=== PATIENT | female | born 1950 | race Caucasian/White ===

== ENCOUNTER 2018-12-05 13:02 | Inpatient (IN) ==
[2018-12-05] MEDS ORDERED: ceFAZolin 2 GM in DEXTROSE 5% IN WATER 50 ML IV SCH (14:00)
--- NOTE | 2018-12-05 14:05 | Emergency Department Note ---
Lower Extremity Injury HPI <Pinky Warrenergen - Last Filed: 12/05/18 14:11> - General Source: patient, family Mode of arrival: wheelchair Limitations: no limitations - History of Present Illness MD complaint: hip injury (right) Onset (ago): day(s) (4) Type of Injury: blunt Place: home <Jahaira Ray - Last Filed: 12/05/18 14:43> - General Chief Complaint: Extremity Injury, Lower Stated Complaint: Right hip pain Time Seen by Provider: 12/05/18 13:07 - History of Present Illness HPI Narrative: 68-year-old female in ED referred from Dr. Cespedes's office. Patient advised 3 days ago she was at home and tripped while walking into the living room, her foot caught on the carpet transition board. She fell face first and bruised left side of her face, left knee. Patient was assisted up and continued on her day with increased pain. The next day she was unable to move her right leg and called EMS to take her into the hospital. She was in [facility] and admitted for overnight observation. Today patient was transferred to Dr. Cespedes's office who advised surgery was needed. Patient needs right total hip replacement and hardware removal of the gamma nail. Patient advises she did recently see her cable hooker 3 weeks ago and was advised she did not need to return for another year. (Jahaira Ray) - Related Data Home Medications Medication Instructions Recorded Confirmed Bisoprolol Fumarate 5 mg PO DAILY 12/05/18 12/05/18 Digoxin 0.125 mg PO DAILY 12/05/18 12/05/18 Famotidine [Pepcid] 20 mg PO DAILY 12/05/18 12/05/18 Folic Acid 1 mg PO BID 12/05/18 12/05/18 Levothyroxine [Synthroid] 100 mcg PO DAILY 12/05/18 12/05/18 Lisinopril [Zestril] 2.5 mg PO DAILY 12/05/18 12/05/18 Spironolactone [Aldactone] 25 mg PO DAILY 12/05/18 12/05/18 Allergies Allergy/AdvReac Type Severity Reaction Status Date / Time meperidine [From Demerol] Allergy Verified 12/05/18 13:03 Sulfa (Sulfonamide Allergy Verified 12/05/18 13:03 Antibiotics) Review of Systems All systems ED: reviewed and negative except as stated. <Jahaira Ray Last Filed: 12/05/18 14:43> Past Medical History - Past Medical History Medical history: Reports: CHF, hyperlipidemia, hypertension, hypothyroidism - Social History smoking status: Current every day smoker <Jahaira Ray Last Filed: 12/05/18 14:43> Physical Exam Limitations: no limitations General appearance: alert, in no apparent distress Head: atraumatic, normocephalic, normal inspection, other (bruising left side forehead and left cheek) Eye: Present: normal appearance, PERRL, EOMI. Absent: conjunctival injection ENT: normal oropharynx, mucous membranes moist, normal external ear exam Neck: Present: normal inspection. Absent: tenderness, lymphadenopathy Chest: Present: normal inspection, symmetric chest wall rise. Absent: tenderness Respiratory: Present: normal lung sounds bilaterally. Absent: respiratory distress, rales/crackles, wheezes Cardiovascular: Present: regular rate, normal rhythm. Absent: systolic murmur, diastolic murmur Abdominal: Present: soft, normal bowel sounds. Absent: distention, tenderness, guarding, rebound, rigidity Extremities: Present: tenderness (right hip). Absent: pedal edema Back: Present: normal inspection Neurological: Present: alert, oriented X3 Psychiatric: Present: normal affect, normal mood. Absent: depressed, agitated, anxious, flat affect Skin: Present: warm, dry, intact, normal color. Absent: cool, diaphoretic <Jahaira Ray Last Filed: 12/05/18 14:43> Vital Signs Temperature 96.8 F L 12/05/18 13:03 Pulse Rate 58 L 12/05/18 13:03 Respiratory Rate 16 12/05/18 13:03 Blood Pressure 98/61 12/05/18 13:03 Pulse Oximetry (%) 98 12/05/18 13:03 Temperature 96.8 F L 12/05/18 13:03 Pulse Rate 62 12/05/18 13:46 Respiratory Rate 16 12/05/18 13:03 Blood Pressure 112/58 12/05/18 13:46 Pulse Oximetry (%) 100 12/05/18 13:46 Extremity Injury, Lower - Lab Data Result diagrams: 12/05/18 13:17 12/05/18 13:17 <Sylvain Warren - Last Filed: 12/05/18 14:11> - Lab Data Result diagrams: 12/05/18 13:17 12/05/18 13:17 <Jahaira Ray - Last Filed: 12/05/18 14:43> - MDM Narrative Medical decision making narrative: Patient was transferred to surgery. (Jahaira Ray) - Lab Data Lab Results 12/05/18 Range/Units 13:35 Urine Color Yellow Urine Appearance Cloudy Urine pH 7.0 (5.0-9.0) Ur Specific [place] 1.010 (1.000-1.035) Urine Protein Neg (NEG) mg/dL Urine Glucose (UA) Negative (NEG) mg/dL Urine Ketones Neg (NEG) mg/dL Urine Occult Blood Neg (<0.03) mg/dL Urine Nitrate Neg (NEG) Urine Bilirubin Neg (NEG) mg/dL Urine Urobilinogen Neg (NEG) mg/dL Ur Leukocyte Esterase Neg (NEG) /uL Ur Culture Indicated? No Disposition <Sylvain Warren - Last Filed: 12/05/18 14:11> Pt seen by ASSOCIATE PROFESSOR OF SURGERY/PA only: No (Kelvin) Time of Disposition: 14:43 <Jahaira Ray - Last Filed: 12/05/18 14:43> Clinical Impression: Hip arthritis Disposition: Xfer As Outpt/Obs ([facility]) Condition: Good
--- NOTE | 2018-12-05 14:05 | XRay Report ---
INDICATION: Dyspnea TECHNIQUE: AP chest x-ray,portable semiupright COMPARISON: None FINDINGS:Changes consistent with previous mastectomy. There are surgical clips in the right axilla Lungs are negative. No parenchymal infiltrate. No focal pulmonary parenchymal mass. Heart size and vascularity are normal. Phyllis and mediastinum are negative. There is no pleural fluid. No acute abnormality IMPRESSION: 1. Previous right mastectomy 2. No acute or focal abnormality Interpreted and Authenticated by: Joey Klein 12/05/18
--- NOTE | 2018-12-05 14:11 | Emergency Department Note ---
ED Note Addendum Note Addendum: Patient seen by nurse practitioner Jahaira. Agree with the assessment and treatment plan.
[2018-12-05] MEDS ORDERED: GENTAMICIN SULFATE 800 MG/20 ML VIAL IR ONE (14:12)
[2018-12-05 14:22] LABS: Appearance,Urine CLOUDY; Bilirubin,Urine NEG (NEG); Color,Urine YELLOW; Glucose,Urine (UA) NEGATIVE (NEG); Leukocyte Esterase,Urine NEG /uL (NEG); Protein,Urine NEG (NEG); Urine Blood NEG mg/dL (<0.03); Urobilinogen,Urine NEG (NEG)
[2018-12-05] MEDS ORDERED: 0.9 % SODIUM CHLORIDE 9 ML, KETOROLAC 30 MG, ROPIVACAINE HCL/PF 49.5 ML, EPINEPHrine 0.... IJ ONE (15:04)
[2018-12-05 15:19] LABS: Basophils # (Auto) 0.1 K/mcL (0.0-0.3); Basophils % (Auto) 0.8 % (0.0-2.0); Eosinophils # (Auto) 0.2 K/mcL (0.0-0.7); Eosinophils % (Auto) 1.6 % (0.0-7.0); Granulocytes % (Auto) 77.9 % (38.0-78.0); Lymphocytes # (Auto) 1.2 K/mcL (1.5-4.8); Mean Cell Volume 110.7 fL (80.0-100.0); Mean Corpuscular HGB Conc 32.9 g/dL (31.0-36.0); Monocytes # (Auto) 1.2 K/mcL (0.1-0.9); Monocytes % (Auto) 9.7 % (1.0-12.0); Platelet Count 331 K/mcL (140-440); RBC 3.52 M/mcL (4.00-5.20); Red Cell Distribution Width 13.4 % (11.5-14.5)
[2018-12-05] MEDS ORDERED: MIDAZOLAM 2 MG/2 ML VIAL IV ONE (15:30)
[2018-12-05] MEDS ORDERED: KETAMINE 100 MG/ML ML IV ONE (15:30)
[2018-12-05] MEDS ORDERED: ONDANSETRON 4 MG/2 ML VIAL IV ONE (15:30)
[2018-12-05] MEDS ORDERED: PHENYLEPHRINE 10 MG/ML VIAL IV ONE (15:30)
[2018-12-05] MEDS ORDERED: PROPOFOL 200 MG/20 ML VIAL IV ONE (15:30)
[2018-12-05] MEDS ORDERED: GLYCOPYRROLATE 0.2 MG/ML VIAL IV ONE (15:30)
[2018-12-05] MEDS ORDERED: TRANEXAMIC ACID 1,000 MG/10 ML VIAL IV ONE ×3 (15:30→17:42)
[2018-12-05] MEDS ORDERED: fentaNYL 100 MCG/2 ML VIAL IV ONE (15:30)
[2018-12-05] MEDS ORDERED: ePHEDrine 50 MG/ML AMPUL IV ONE (15:30)
[2018-12-05] MEDS ORDERED: LIDOCAINE HCL/PF 100 MG/5 ML SYRINGE IV ONE (15:30)
[2018-12-05] MEDS ORDERED: DEXAMETHASONE 4 MG/ML VIAL IV ONE (15:30)
[2018-12-05 15:40] LABS: ALT/SGPT 18 U/l (0-40); Albumin 3.3 gm/dL (3.2-5.2); Alkaline Phosphatase 158 U/L (39-117); Blood Urea Nitrogen 8 mg/dl (8-23)
[2018-12-05] MEDS ORDERED: BENZOCAINE/MENTHOL 1 LOZENGE PO PRN ×2 (16:46→17:12)
[2018-12-05] MEDS ORDERED: NALOXONE HCL 0.4 MG/ML VIAL IV PRN (16:46)
[2018-12-05] MEDS ORDERED: fentaNYL 100 MCG/2 ML VIAL IV PRN (16:46)
[2018-12-05] MEDS ORDERED: LACTATED RINGERS 250 ML IV PRN (16:46)
[2018-12-05] MEDS ORDERED: ONDANSETRON 4 MG/2 ML VIAL IV PRN (16:46)
[2018-12-05] MEDS ORDERED: ACETAMINOPHEN 700 MG/70 ML BOTTLE IV ONE (16:46)
[2018-12-05] MEDS ORDERED: FLUMAZENIL 0.1 MG/ML ML IV PRN (16:46)
[2018-12-05] MEDS ORDERED: diphenhydrAMINE 50 MG/ML VIAL IV PRN (16:46)
[2018-12-05] MEDS ORDERED: IPRATROPIUM/ALBUTEROL 3 ML AMPUL.NEB NEB PRN (16:46)
[2018-12-05] MEDS ORDERED: PROMETHAZINE 25 MG/ML VIAL IV PRN (16:46)
[2018-12-05] MEDS ORDERED: LACTATED RINGERS 1,000 ML IV SCH (17:00)
--- NOTE | 2018-12-05 17:11 | Brief Operative Note ---
Date of procedure: 12/05/18 Pre-op diagnosis: Right hip djd and fracture Post-op diagnosis: same Procedure: right hip hardware removal and total hep replacement cemented stem Grafts/Implants: Yes Anesthesia: GETA Findings: severe hip djd Surgeon: Wong Cespedes Tank Truck Engine Mechanic: Deandre Hernandez Estimated blood loss (cc): 100 Specimens Removed/Pathology: none sent Condition: stable Disposition: PACU
[2018-12-05] MEDS ORDERED: POLYETHYLENE GLYCOL 3350 17 GM PACKET PO PRN (17:12)
[2018-12-05] MEDS ORDERED: TEMAZEPAM 15 MG CAPSULE PO PRN (17:12)
[2018-12-05] MEDS ORDERED: FLEETS ADULT ENEMA PR PRN (17:12)
[2018-12-05] MEDS ORDERED: HYDROmorphone 2 MG/ML VIAL IV PRN (17:12)
[2018-12-05] MEDS ORDERED: MAGNESIUM HYDROXIDE 30 ML ORAL.SUSP PO PRN (17:12)
[2018-12-05] MEDS ORDERED: ACETAMINOPHEN 325 MG TABLET PO PRN (17:12)
[2018-12-05] MEDS ORDERED: BISACODYL 10 MG SUPP.RECT PR PRN (17:12)
[2018-12-05] MEDS ORDERED: KETOROLAC 15 MG/ML VIAL IV PRN (17:12)
--- NOTE | 2018-12-05 17:41 | XRay Report ---
CLINICAL INFORMATION: Right total hip arthroplasty TECHNIQUE: AP pelvis. AP and lateral right hip COMPARISON: None. FINDINGS: Images were obtained following right total hip arthroplasty. Acetabular and femoral head component are anatomic. There is some extra osseous methyl methacrylate overlying the proximal right femoral diaphysis. There is postsurgical soft tissue gas. There are skin kota present IMPRESSION: Status post right total hip arthroplasty Interpreted and Authenticated by: Joey Klein 12/05/18
[2018-12-05] MEDS: SENNOSIDES 1 TABLET PO SCH (20:40)
[2018-12-05] MEDS: DOCUSATE SODIUM 100 MG CAPSULE PO SCH (20:40)
[2018-12-05] MEDS: ASPIRIN 325 MG ENTERIC COATED TABLET PO SCH (20:41)
[2018-12-05] MEDS: FOLIC ACID 1 MG TABLET PO SCH (20:41)
[2018-12-05] MEDS: 0.45 % SODIUM CHLORIDE 1,000 ML IV SCH (20:46)
[2018-12-05] MEDS: 0.9 % SODIUM CHLORIDE 10 ML SYRINGE IV SCH (20:46)
[2018-12-05] MEDS: oxyCODONE/APAP 5/325MG TABLET PO PRN (21:41)
[2018-12-05] MEDS: ceFAZolin 1 GM VIAL IV SCH (22:46)
[2018-12-06] MEDS: 0.45 % SODIUM CHLORIDE 1,000 ML IV SCH ×2 (04:41→17:48)
[2018-12-06] MEDS: 0.9 % SODIUM CHLORIDE 10 ML SYRINGE IV SCH ×2 (05:04→15:54)
[2018-12-06] MEDS: oxyCODONE/APAP 5/325MG TABLET PO PRN ×3 (05:59→20:07)
--- NOTE | 2018-12-06 08:06 | Orthopedic Progress Note ---
Subjective Patient information: Note initiated : 12/06/18 at 8:05 am Service Date, if different from initiated Date: [] Patient: Sania Zaragoza 68 y/o F admitted on 12/05/18 for Rt Hip Pain. Chief Complaint: [no complaint of pain and walking 50 feet] Objective Vital signs: Vital Signs Temp Pulse Pulse Resp BP BP BP 12/06/18 06:35 97.6 F 16 96/55 12/06/18 03:35 12/06/18 01:00 12/05/18 23:36 97.9 F 87 16 107/65 12/05/18 23:00 12/05/18 22:54 97.1 F 87 16 103/65 12/05/18 21:00 12/05/18 20:54 97.2 F 83 16 116/71 12/05/18 19:54 97.2 F 79 16 111/67 12/05/18 19:23 96.9 F L 74 16 117/70 12/05/18 19:13 12/05/18 18:54 97 F 81 16 110/71 12/05/18 18:39 97 F 81 16 104/70 12/05/18 18:33 96.8 F L 85 16 104/70 12/05/18 18:23 96.4 F L 77 16 106/70 12/05/18 18:09 96.3 F L 79 16 97/70 12/05/18 17:55 97.1 F 87 20 101/69 12/05/18 17:50 97.0 F 83 12 106/65 12/05/18 17:35 85 13 101/63 12/05/18 17:20 87 14 133/70 12/05/18 17:15 77 12 139/77 12/05/18 17:10 61 12 139/75 12/05/18 17:05 97.5 F 83 14 125/59 12/05/18 13:46 62 112/58 12/05/18 13:32 109/74 12/05/18 13:03 96.8 F L 58 L 16 98/61 Pulse Ox 12/06/18 06:35 97 12/06/18 03:35 100 12/06/18 01:00 98 12/05/18 23:36 99 12/05/18 23:00 100 12/05/18 22:54 99 05/10/19 21:00 100 12/05/18 20:54 100 12/05/18 19:54 100 12/05/18 19:23 100 12/05/18 19:13 100 12/05/18 18:54 100 12/05/18 18:39 100 12/05/18 18:33 100 12/05/18 18:23 100 12/05/18 18:09 100 12/05/18 17:55 100 12/05/18 17:50 98 12/05/18 17:35 98 12/05/18 17:20 100 12/05/18 17:15 100 12/05/18 17:10 100 12/05/18 17:05 100 12/05/18 13:46 100 12/05/18 13:32 12/05/18 13:03 98 Intake and Output 12/05/18 12/06/18 12/06/18 21:59 05:59 13:59 Intake Total 2220 1392 Output Total 200 200 Balance 2019 1192 Intake: IV 70 792 Sodium Chloride 0.45% 1,000 ml 792 @ 100 mls/hr IV .Q10H [place] Rx#: [id number] Oral 400 600 IV - Manual Only 1750 Output: Urine Catheter Amount 200 Void Amount 200 Other: Meal yogurt Urine Appearance Clear Clear Uretheral (Jon) Clear Urine Color Pale Bright Yellow Uretheral (Jon) Bright Yellow Urine Odor Normal Normal # Bowel Movements 0 Weight 106 lb 8 oz Intake & Output: Intake & Output 12/05/18 12/06/18 12/06/18 21:59 05:59 13:59 Intake Total 2220 1392 Output Total 200 200 Balance 2019 1192 Weight 106 lb 8 oz Intake: IV 70 792 Sodium Chloride 0.45% 1,000 ml 792 @ 100 mls/hr IV .Q10H [place] Rx#: [id number] Oral 400 600 IV - Manual Only 1750 Output: Urine Catheter Amount 200 Void Amount 200 Other: Meal yogurt Urine Appearance Clear Clear Uretheral (Jon) Clear Urine Color Pale Bright Yellow Uretheral (Jon) Bright Yellow Urine Odor Normal Normal # Bowel Movements 0 Incision: Yes healing Incision clean and dry: Yes Dressing: Yes clean Weight bearing status: full Neurological exam IM: Yes oriented X3, Yes neurovascular intact Extremities exam IM: Yes Foot pink and warm (d/c home tomorrow), Yes neurovascular intact - Labs CBC & BMP: 12/06/18 04:40 12/05/18 13:17 Labs: 12/06/18 12/05/18 04:40 13:17 Hgb 12.8 Hct 29.6 L 38.9
--- NOTE | 2018-12-06 08:09 | Discharge Summary ---
Ortho Discharge - [place] - Patient Instructions Diet: Regular Diet Activity: activity as tolerated, weight bearing as tolerated Total Hip Protocol: Follow activity instructions as provided by Physical Therapy. Dressing Care: May shower in 2 days - Follow Up Plan Follow Up Appointments: Martin Brooks DO [Primary Care Provider] - Disposition: Home, Self-Care Prognosis: Good Rehab Potential: Good I certify that the patient requires SNF services: No Overall status at discharge: patient is progressing back to baseline - Orders For Discharge Prescriptions: oxyCODONE/APAP [Percocet 5-325 mg] 5 - 10 mg PO Q4HP PRN #60 tab PRN Reason: Pain Level 3-6 Additional Discharge Orders: Physical Therapy at Discharge - [place] Location: None Selected Walker Location: None Selected
[2018-12-06] MEDS: ASPIRIN 325 MG ENTERIC COATED TABLET PO SCH ×2 (08:58→20:08)
[2018-12-06] MEDS: LEVOTHYROXINE 100 MCG TABLET PO SCH (08:58)
[2018-12-06] MEDS: ceFAZolin 1 GM VIAL IV SCH (08:58)
[2018-12-06] MEDS: FOLIC ACID 1 MG TABLET PO SCH ×2 (08:58→20:08)
[2018-12-06] MEDS: DOCUSATE SODIUM 100 MG CAPSULE PO SCH ×2 (08:58→20:08)
[2018-12-06] MEDS: FAMOTIDINE 20 MG TABLET PO SCH (08:58)
[2018-12-06] MEDS: ONDANSETRON 4 MG/2 ML VIAL IV PRN ×2 (12:20→17:48)
[2018-12-06] MEDS ORDERED: DIGOXIN 125 MCG TABLET PO SCH (14:00)
[2018-12-06] MEDS: BISOPROLOL 5 MG TABLET PO SCH (14:26)
[2018-12-06] MEDS: SPIRONOLACTONE 25 MG TABLET PO SCH (14:28)
[2018-12-06] MEDS: LISINOPRIL 5 MG TABLET PO SCH (14:28)
[2018-12-06] MEDS: SENNOSIDES 1 TABLET PO SCH (20:08)
[2018-12-07] MEDS: 0.9 % SODIUM CHLORIDE 10 ML SYRINGE IV SCH ×2 (01:26→05:02)
[2018-12-07] MEDS: 0.45 % SODIUM CHLORIDE 1,000 ML IV SCH ×2 (02:09→09:27)
--- NOTE | 2018-12-07 07:37 | Orthopedic Progress Note ---
Subjective Patient information: Note initiated : 12/07/18 at 7:36 am Service Date, if different from initiated Date: [] Patient: Sania Zaragoza 68 y/o F admitted on 12/05/18 for Rt Hip Pain. Chief Complaint: [Pt is stable this morning on post operative day 2 without any significant concerns or complaints. Patients vital signs have remained stable. Patients dressing is dry and is grossly intact from a neurovascular and motor standpoint. Patients 10 point ROS is otherwise negative. ] Objective Vital signs: Vital Signs Temp Pulse Resp BP Pulse Ox 12/07/18 03:11 97.6 F 101 H 16 104/65 96 12/07/18 03:09 96 12/07/18 00:00 98.4 F 103 H 16 116/72 98 12/06/18 19:06 97.9 F 88 16 114/69 98 12/06/18 17:00 97 12/06/18 15:29 98.5 F 16 110/66 97 12/06/18 15:00 97 12/06/18 13:00 97 12/06/18 12:00 98.1 F 12 94/57 98 12/06/18 11:00 98 12/06/18 09:00 98 Intake and Output 12/06/18 12/07/18 12/07/18 21:59 05:59 13:59 Intake Total 1900 100 Output Total 650 1625 Balance 1250 -1525 Intake: IV 1000 Sodium Chloride 0.45% 1,000 ml 1000 @ 100 mls/hr IV .Q10H [place] Rx#: [id number] Oral 900 100 Output: Void Amount 650 1625 Other: Meal Dinner Percent of Meal Consumed 25% Urine Appearance Clear Clear Urine Color Dark Yellow Pale Urine Odor Normal Normal # Bowel Movements 0 Weight 115 lb Intake & Output: Intake & Output 12/06/18 12/07/18 12/07/18 21:59 05:59 13:59 Intake Total 1900 100 Output Total 650 1625 Balance 1250 -1525 Weight 115 lb Intake: IV 1000 Sodium Chloride 0.45% 1,000 ml 1000 @ 100 mls/hr IV .Q10H [place] Rx#: [id number] Oral 900 100 Output: Void Amount 650 1625 Other: Meal Dinner Percent of Meal Consumed 25% Urine Appearance Clear Clear Urine Color Dark Yellow Pale Urine Odor Normal Normal # Bowel Movements 0 Incision: Yes healing Incision clean and dry: Yes Dressing: Yes clean Weight bearing status: full Neurological exam IM: Yes motor sensory intact, Yes neurovascular intact Extremities exam IM: Yes Foot pink and warm, Yes neurovascular intact - Labs CBC & BMP: 12/06/18 04:40 12/05/18 13:17 Labs: 12/06/18 12/05/18 04:40 13:17 Hgb 12.8 Hct 29.6 L 38.9 Assessment and Plan (1) Hx of total hip arthroplasty The patient has been educated regarding dressing care, Physical Therapy recommendations, home exercises, restrictions, and follow up appointments. The patient has had all necessary DME prescribed. The patient has remained relativ danielle stable during their hospital course. Status: Acute
--- NOTE | 2018-12-07 07:38 | Discharge Summary ---
Ortho Discharge - [place] - Patient Instructions Diet: Regular Diet Activity: activity as tolerated, weight bearing as tolerated Total Hip Protocol: Follow activity instructions as provided by Physical Therapy. Dressing Care: May shower in 2 days, Aquacel Ag - leave on for 5 days - Problem Maintenance (1) Hx of total hip arthroplasty Status: Acute - Follow Up Plan Follow Up Appointments: Martin Brooks DO [Primary Care Provider] - Disposition: Home, Self-Care Prognosis: Good Rehab Potential: Good I certify that the patient requires SNF services: No Overall status at discharge: patient is progressing back to baseline - Orders For Discharge Prescriptions: oxyCODONE/APAP [Percocet 5-325 mg] 5 - 10 mg PO Q4HP PRN #60 tab PRN Reason: Pain Level 3-6 Additional Discharge Orders: Physical Therapy at Discharge - [place] Location: None Selected Walker Location: None Selected
[2018-12-07] MEDS: ASPIRIN 325 MG ENTERIC COATED TABLET PO SCH (08:33)
[2018-12-07] MEDS: DOCUSATE SODIUM 100 MG CAPSULE PO SCH (08:33)
[2018-12-07] MEDS: LISINOPRIL 5 MG TABLET PO SCH (08:33)
[2018-12-07] MEDS: oxyCODONE/APAP 5/325MG TABLET PO PRN (08:33)
[2018-12-07] MEDS: FAMOTIDINE 20 MG TABLET PO SCH (08:33)
[2018-12-07] MEDS: FOLIC ACID 1 MG TABLET PO SCH (08:33)
[2018-12-07] MEDS: BISOPROLOL 5 MG TABLET PO SCH (08:34)
[2018-12-07] MEDS: SPIRONOLACTONE 25 MG TABLET PO SCH (08:34)
[2018-12-07] MEDS: LEVOTHYROXINE 100 MCG TABLET PO SCH (08:34)
--- NOTE | 2018-12-08 08:09 | Operative Note ---
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 PROCEDURE: 1. Right hip hardware removal of a Gamma nail with two screws and the nail itself. 2. Total hip arthroplasty, cemented stem. A size 6 stem, 10 mm centralizer with a negative 2.5 neck length, ceramic 36 mm head with a 38 mm cup with a 40 mm screw with a neutral liner. There were no complications with this. Leg lengths were checked, and the patient was stable. Assistance by Deandre Hernandez was required because of the complexity of the case with hardware removal, and he assisted with preoperative positioning, exposure, as well as wound closure. SURGEON: Wong Cespedes M.D. COMPUTERIZED MILL MILL RECORDER: Deandre Hernandez PA-C. DESCRIPTION OF PROCEDURE: The patient was brought to the operating room and put to sleep with general LMA anesthesia. Once asleep, the patient had the right hip sterilely prepped and draped in the usual sterile fashion. We confirmed this as the operative site with a time-out performed. We then proceeded with the case. We made a superior approach to the hip, exposing the superior capsule and subluxed the hip superiorly. The screws were removed, both dynamic compression screw, the locking screw, the distal locking screw, and then the Gamma nail itself. All components were removed. We irrigated thoroughly and then we dislocated the hip and made our neck cut at 30 mm from the center of hip rotation. Once this was done, we then reamed up on the acetabulum side up to the size of 48. A 48 cup was positioned at 15 degrees of anteversion and 40 degrees of inclination. A 40 mm locking screw was placed with good purchase. We irrigated thoroughly and then placed the all-poly liner which fit very nicely. Once secure, we then prepared the femur. This was broached up to the size of 6. We trialed a size 6 implant with a neutral neck length. This seemed to match neck length bilaterally. We then cemented into place a size 6 stem in 15 degrees of anteversion. Once the bone cement was placed, we then trialed a neutral neck length. This seemed to be a little tight. Measuring leg length, this seemed to have lengthened the leg slightly. We went to a negative 2.5 mm ceramic ball. This was implanted. We reduced the hip, had full range of motion, very stable. We irrigated thoroughly. At this point, we then repaired the capsule posteriorly with #1 Ethibond. We closed the fascia with a #1 Stratafix, closed the skin with 2-0 Vicryl and adhesive closure. The patient tolerated this well. There was no complication. RBH:linda Job ID: [id number] Doc ID: [id number] Wong Cespedes MD
== END 2018-12-07 14:15 | disposition home or self-care (01) | DRG 470 ==
LOC: ED 13:02 → SUR 14:09 → MEDSUR 17:54
PROVIDERS: ADMIT Orthopaedic Surgery; ATTEND Orthopaedic Surgery